=== PATIENT | male | born 1935 | race Caucasian/White ===

== ENCOUNTER 2017-01-24 00:20 | Emergency (ER) | payer MEDICARE, MEDICAID ==
[~2017-01-24] VITALS: Ht 167.6 cm; Wt 58.1 kg
[2017-01-24 00:39] VITALS: BP_SYST 142
[2017-01-24] MEDS ORDERED: UNK BP MED PO (00:45)
[2017-01-24] MEDS ORDERED: DEXAMETHASONE SOD PHOSPHATE 10 MG/ML VIAL IM ONE (01:30)
[2017-01-24] MEDS ORDERED: DIPHENHYDRAMINE HCL 50 MG CAPSULE PO ONE (01:30)
[2017-01-24] MEDS ORDERED: FAMOTIDINE 20 MG TABLET PO ONE (01:30)
[2017-01-24 01:45] VITALS: BP_SYST 142
== END 2017-01-24 01:45 | disposition home or self-care (01) ==
LOC: SED 00:20
DX: T63.441A Toxic effect of venom of bees, accidental (unintentional), initial encounter (principal); L53.0 Toxic erythema; I10 Essential (primary) hypertension; Y92.89 Other specified places as the place of occurrence of the external cause
CPT/HCPCS: 96372; 99283; J1100; Q0163